=== PATIENT | female | born 1985 | race Caucasian/White ===

== ENCOUNTER 2024-08-21 18:37 | Emergency (ER) | payer MEDICAID ==
[~2024-08-21] VITALS: Ht 162.6 cm; Wt 97.7 kg
[2024-08-21 21:40] VITALS: BP 123/86; PULSE 71; RESP 16; TEMP 98.4; O2SAT 99
== END 2024-08-21 21:43 | disposition home or self-care (01) ==
LOC: ER 18:38
DX: N63.10 Unspecified lump in the right breast, unspecified quadrant (principal)
CPT/HCPCS: 76642; 99284

== ENCOUNTER 2025-03-26 08:23 | Day surgery (SDC) | payer MEDICAID ==
--- NOTE | 2025-03-21 14:20 | ELECTROCARDIOGRAPH REPORT ---
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 TEOFILO Bernal Measurements Intervals [place] Rate: 55 P: 30 SD: 117 QRS: 42 QRSD: 91 T: 40 QT: 412 QTc: 394 Interpretive Statements Sinus bradycardia Borderline short SD interval Electronically Signed On 03-21-2025 16:02:[address] TEOFILO Bernal Please click the below link to view image of tracing.
[2025-03-21 14:58] LABS: MEAN PLATELET VOLUME 7.9 FL (7.4-10.4); PRE OP HEMATOCRIT 42.7 % (35.0-45.0); PRE OP HEMOGLOBIN 14.2 g/dL (12.0-16.0); PRE OP PLATELET COUNT 350 X10'3 (140-440); PRE OP WHITE BLOOD COUNT 8.6 10'3 (4.8-10.8); RED CELL DISTRIBUTION WIDTH 12.7 % (11.5-14.5)
[2025-03-21 15:15] LABS: CREATININE 0.75 MG/DL (0.40-0.90); PRE OP ALT 33 U/L (30-65); PRE OP ANION GAP 4 (8-16); PRE OP AST 17 U/L (10-37); PRE OP BILIRUB, TOTAL 0.4 MG/DL (0.0-1.0); PRE OP GLUCOSE 95 MG/DL (70-104); PRE OP POTASSIUM 3.5 MMOL/L (3.4-5.1); PRE OP SODIUM 136 MMOL/L (135-145); TOTAL CARBON DIOXIDE 28.9 MMOL/L (24-32); eGFR 86 ML/MIN
[2025-03-21 15:30] LABS: HCG SERUM QL NEGATIVE
[2025-03-26] VITALS (10 sets, daily range): BP systolic 110–126; BP diastolic 67–82; PULSE 51–70; RESP 13–16; TEMP 95.8–99; O2SAT 97–100
[~2025-03-26] VITALS: Ht 162.6 cm; Wt 95.8 kg
[2025-03-26] MEDS: ceFAZolin 2gm/dext,iso 50mL 50 ML IV ONE (05:30)
[~2025-03-26 08:23] MED LIST: ALBU18HF2 INH; LEVO112T52 PO; albuterol 2.5 MG/3 ML nebule NEB ONE
[2025-03-26] MEDS: ringers solution, lacted 1,000 ML IV SCH (09:04)
[2025-03-26] MEDS ORDERED: BUPIVAcaine/PF 2.5mg/ml (0.25%) 10ml vial ONE (10:40)
[2025-03-26] MEDS ORDERED: LIDOcaine 1% (10mg/ml)w/preservative inj. 20ml MDV ONE (10:40)
[2025-03-26] MEDS ORDERED: BUPIVACAINE liposomal/PF 13.3 MG/ML 10mL vial IM ONE (10:40)
[2025-03-26] MEDS ORDERED: methylene blue (5mg/ml) 50mg/10ml ampul IV ONE (10:40)
[2025-03-26] MEDS ORDERED: midazolam 1 mg/ML 2ml injection ONE (10:54)
[2025-03-26] MEDS ORDERED: ringers solution, lacted 1,000 ML IV SCH (10:55)
[2025-03-26] MEDS ORDERED: ondansetron/PF 4mg/2ml inj IV PRN (10:55)
[2025-03-26] MEDS ORDERED: HYDROmorphone/PF 0.2 MG/ML SYRINGE IV PRN ×2 (10:55)
[2025-03-26] MEDS ORDERED: labetalol 20mg/4ml (5mg/ml) syringe IV PRN (10:55)
[2025-03-26] MEDS ORDERED: hydrALAZINE 20mg/ml inj. IV PRN (10:55)
[2025-03-26] MEDS ORDERED: dexamethasone sod phosphate 4mg/ml inj. ONE (11:20)
[2025-03-26] MEDS ORDERED: propofol inj 20 ML IV ONE (11:20)
[2025-03-26] MEDS ORDERED: ondansetron/PF 4mg/2ml inj ONE (11:20)
[2025-03-26] MEDS ORDERED: fentaNYL /PF 50mcg/ml 5ml ampule ONE (11:20)
[2025-03-26] MEDS: LIDOcaine 1% 30ml preserv. free vial IJ ONE (11:38)
[2025-03-26] MEDS: BUPIVAcaine/PF 2.5mg/ml (0.25%) 10ml vial IJ ONE (11:39)
[2025-03-26] MEDS: BUPIVACAINE liposomal/PF 13.3 MG/ML 10mL vial IM ONE (11:40)
--- NOTE | 2025-03-26 12:42 | OPERATIVE REPORT ---
Operative Report Providers to CC: RACHELL YOUNG DO ~ Date of Procedure: Mar 26, 2025 Pre-Operative Diagnosis: Right breast fibroepithelial lesion Post-Operative Diagnosis SAME as PRE-Op Procedure Performed 1. Right breast wire localized excisional biopsy 2. Intraoperative ultrasound guidance 3. Reading of specimen radiograph Surgeon: Dr. 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 Right breast wire localized excisional biopsy suture marked short superior, long lateral, double deep 2. Right breast superior margin suture lima final margin 3. Right breast inferior margin suture lima final margin 4. Right breast lateral margin suture lima final margin Description of Procedure: Aracelis is a 39-year-old female who was referred to me by Dr.Ian Brown. She had multiple biopsies in the right breast and one of them resulted in a fibroepithelial incision can not rule out phyllodes tumor. She was seen and evaluated in my office. We discussed the surgical options and the risks and benefits and alternatives to surgery. She agreed to a wide excision of the fibroepithelial lesion. I explained to her the potential diagnosis of fibroadenoma versus phyllodes lesion. Patient was seen in the preoperative holding area by myself and the anesthesiologist. The right breast was marked with my initials. She was taken to the operative suite placed on the table in supine position with the arms extended. General anesthesia was administered with an LMA. I scanned the right breast with the pintuition probe and identified the signal. I also used the ultrasound and scanned the breast at 9:30 a.m. 4 cm from the nipple just at the areolar edge. I identified an isoechoic mass with lobular edges. It was visualized in the radial and anti radial positions. I marked the skin with my initials. The patient was prepped and draped in a sterile fashion and a time-out was performed and agreed upon. I injected 1% lidocaine at the proposed incision at the eight to 10 o'clock position along the areolar edge. I made the incision with a 15 blade and dissected through the deep dermal layer with the cutting on the cautery. Kerri retractors were placed in the edges of the incision and I dissected further into the deep subcutaneous tissue. I used the pintuition probe to guide my dissection. I subsequently placed he Solis retractors in the cavity and dissected circumferentially around the lump. It was completely excised and oriented with short stitch superior long suture lateral double suture deep. It was placed in the fact that trauma machine. I identified one marker and one tracker. The specimen was placed in formalin. I additionally excised an inferior superior and lateral margin to obtain clear margins just in case the pathology results identified a phyllodes tumor. The cavity was copiously irrigated and hemostasis was achieved with Bovie electrocautery. I placed Shahzad into the cavity to assist with hemostasis. She had very fibrocystic breast and had some bleeding within adequate limits. I approximated the cavity with 3-0 kisha Vicryl suture. The skin was closed with 3-0 Vicryl interrupted sutures and a 4-0 Monocryl running subcuticular stitch. The area was cleaned 0.25% Marcaine mixed with Exparel was injected at the site. A sterile dressing was applied after Dermabond was placed over the incision. Sterile dressings were applied to the incision. A breast binder was placed on the patient. She was taken to recovery in stable condition without complication, all needle and sponge counts were correct. Counts repoted as correct: Yes RACHELL YOUNG DO Mar 26, 2025 12:42
[2025-03-26] MEDS: morphine 4 MG/ML inj SYRINge IV PRN (12:52)
[2025-03-26] MEDS: acetaminophen 1,000mg/100ml IV 100 ML IV PRN (13:13)
== END 2025-03-26 13:45 | disposition home or self-care (01) ==
LOC: PAS 08:23
PROVIDERS: ATTEND Surgery
DX: N60.31 Fibrosclerosis of right breast (principal); D24.1 Benign neoplasm of right breast; N60.81 Other benign mammary dysplasias of right breast; E11.9 Type 2 diabetes mellitus without complications; E78.5 Hyperlipidemia, unspecified; E03.9 Hypothyroidism, unspecified; F41.9 Anxiety disorder, unspecified; G43.909 Migraine, unspecified, not intractable, without status migrainosus; I25.2 Old myocardial infarction; Z87.891 Personal history of nicotine dependence; Z79.890 Hormone replacement therapy; Z79.899 Other long term (current) drug therapy; Z98.891 History of uterine scar from previous surgery
CPT/HCPCS: 19301; 36415; 76098; 80053; 82948; 84703; 85025; 93005; J0131; J0666; J1100; J2003; J2250; J2270; J2405; J2704; J3010; J3490; J7030; J7120; Q9968; Z7506; Z7508; Z7512; A4215; A4618; A6253; A6258; A7000